=== PATIENT | female | born 1955 | race Caucasian/White ===

== ENCOUNTER → 2017-04-10 | Outpatient (CLI) | payer OTHER | LOC: FIMAGING 14:59 | PROVIDERS: ATTEND Advanced Practice Midwife | DX: Z12.31 Encounter for screening mammogram for malignant neoplasm of breast (principal) | CPT/HCPCS: G0202 ==

== ENCOUNTER 2017-08-10 07:05 | Observation (INO) | payer OTHER ==
[2017-08-10] MEDS ORDERED: ACETAMINOPHEN 500 MG TAB PO ONE (07:26)
[2017-08-10] MEDS ORDERED: GABAPENTIN 300 MG CAP PO ONE (07:26)
[2017-08-10] MEDS ORDERED: ceFAZolin 2 GM/SWFI 2 GM/20 ML SYR IVP ONE (07:26)
[2017-08-10] MEDS ORDERED: LIDOCAINE 1% 2 ML INJ ID PRN (07:31)
[2017-08-10] MEDS ORDERED: LR 1,000 ML IV ONE (07:31)
[2017-08-10] MEDS ORDERED: THROMBIN (BOVINE) 5,000 UNIT VIAL TP ONE (08:28)
[2017-08-10] MEDS ORDERED: CHLORHEXIDINE GLUC HIBICLENS 118 ML BTL TP ONE (08:28)
[2017-08-10] MEDS ORDERED: DEPO METHYLPREDNISOLONE 40 MG/ML SDV ONE (08:28)
[2017-08-10] MEDS ORDERED: BUPIVACAINE 0.25% 30 ML SDV ONE (08:28)
[2017-08-10] MEDS ORDERED: BACITRACIN 50,000 UNITS/10 ML SYR IRR ONE ×2 (08:29→11:38)
[2017-08-10] MEDS ORDERED: VANCOMYCIN HCL/NORMAL SALINE 250 ML IV ONE (08:32)
[2017-08-10] MEDS ORDERED: oxyCODONE IR 5 MG TAB PO ONE ×2 (08:33→09:00)
--- NOTE | 2017-08-10 08:33 | PDHPUP ---
History & Physical Update H&P update statement: This history and physical update is based on an assessment of the patient which was completed after admission or registration (within 24 hours), but prior to the surgery/procedure. H&P update: H&P reviewed & patient examined, no change in patient's condition since H&P completed
--- NOTE | 2017-08-10 08:40 | PDANEPAE ---
ANE History of Present Illness 61 yo female for lumber spine surgery. ANE Past Medical History - Cardiovascular History Hx Hypertension: No Hx Arrhythmias: No Hx Chest Pain: No Hx Coronary Artery / Peripheral Vascular Disease: No Hx CHF / Valvular Disease: No Hx Palpitations: No - Pulmonary History Hx COPD: No Hx Asthma/Reactive Airway Disease: Yes Hx Recent Upper Respiratory Infection: No Hx Oxygen in Use at Home: No Hx Sleep Apnea: No Sleep Apnea Screening Result - Last Documented: Negative Pulmonary History Comment: asthma - rescue inhaler this morning, no ER visits - Neurologic History Hx Cerebrovascular Accident: No Hx Seizures: No Hx Dementia: No - Endocrine History Hx Diabetes: No Hypothyroid: No Obesity: no - Renal History Hx Renal Disorders: No - Liver History Hx Hepatic Disorders: No - Neurological & Psychiatric Hx Hx Neurological and Psychiatric Disorders: Yes Neurological / Psychiatric History Comment: right ankle to foot numb r/t back - Cancer History Hx Cancer: No - Congenital Disorder History Hx Congenital Disorders: No - GI History GERD: no Hx Gastrointestinal Disorders: No - Other Health History Other Health History: none - Chronic Pain History Chronic Pain: No - Surgical History Prior Surgeries: left hand infection debridment ANE Review of Systems Review of Systems: - Exercise capacity METS (RN): 5 METS ANE Patient History - Allergies Allergies/Adverse Reactions: Penicillins Allergy (Intermediate, Verified 08/10/17 07:41) Hives Sulfa (Sulfonamide Antibiotics) Allergy (Intermediate, Verified 08/04/17 11:13) Hives sulfamethoxazole [From Bactrim] Allergy (Intermediate, Verified 08/04/17 11:13) Hives trimethoprim [From Bactrim] Allergy (Intermediate, Verified 08/10/17 07:41) Hives - Home Medications Home medications: home medication list seen and reviewed Home Medications: Budesonide/Formoterol 160/4.5 [Symbicort 160-4.5 Mcg Inh (*)] 2 puffs IH DAILY 08/04/17 [Last Taken 08/10/17 05:30] CYCLOBENZAPRINE HCL [Flexeril] 5 mg PO DAILY PRN 08/04/17 [Last Taken 08/09/17 20:00] Fluticasone Nasal [Flonase Nasal [place] (RX)] 2 sprays NASAL DAILY 08/04/17 [ Last Taken 08/10/17 05:30] Gabapentin [Neurontin 300 MG (*)] 300 mg PO HS 08/04/17 [Last Taken 07/30/17] Hydrocodone/Acetaminophen [[place] 5/325 (*)] 1 each PO DAILY PRN 08/04/17 [Last Taken 08/09/17 09:00] Progesterone, Micronized [Progesterone] 100 mg PO HS 08/04/17 [Last Taken 21:00] traMADol [Ultram 50 mg (*)] 50 mg PO BID PRN 08/04/17 [Last Taken 08/09/17 15:00 ] - NPO status NPO Since - Liquids (Date): 08/09/17 NPO Since - Liquids (Time): 00:01 NPO Since - Solids (Date): 08/09/17 NPO Since - Solids (Time): 18:00 - Anes Hx Anes Hx: no prior problems - Smoking Hx Smoking Status: Never smoked Marijuana use: No - Alcohol Use Alcohol Use: Rarely - Family Anes Hx Family Anes Hx: neg - N/A Family Hx Anesthesia Complications: none ANE Labs/Vital Signs - Vital Signs Blood Pressure: 127/77 Heart Rate: 76 Respiratory Rate: 20 O2 Sat (%): 100 Height: 175.26 cm Weight: 74.843 kg ANE Physical Exam - Airway Neck exam: FROM Mouth exam: normal dental/mouth exam - Pulmonary Pulmonary: clear to auscultation - Cardiovascular Cardiovascular: regular rate and rhythym - ASA Status ASA Status: II ANE Anesthesia Plan Anesthesia Plan: general endotracheal anesthesia Lines/Monitors: additional IV
[2017-08-10] MEDS ORDERED: MIDAZOLAM 2 MG/2 ML VIAL IVP ONE (08:48)
[2017-08-10] MEDS ORDERED: GABAPENTIN 300 MG CAP ONE (08:54)
[2017-08-10] MEDS ORDERED: ACETAMINOPHEN 500 MG TAB ONE (08:54)
[2017-08-10] MEDS ORDERED: VANCOMYCIN 1 GM in D5W 250 ML IV ONE (09:00)
[2017-08-10] MEDS ORDERED: REMIFENTANIL HCL 1 MG VIAL ONE (09:11)
[2017-08-10] MEDS ORDERED: LIDOCAINE 2% 5 ML SDV ONE (09:11)
[2017-08-10] MEDS ORDERED: DEXAMETHASONE 4 MG/ML VIAL ONE ×2 (09:11→09:18)
[2017-08-10] MEDS ORDERED: ROCURONIUM 50 MG/5 ML VIAL ONE (09:11)
[2017-08-10] MEDS ORDERED: DIAZEPAM 10 MG/2 ML SYR ONE (09:12)
[2017-08-10] MEDS ORDERED: PROPOFOL/EMULSION 500 MG/50 ML BOTTLE IV ONE ×2 (09:12)
[2017-08-10] MEDS ORDERED: HYDROmorphONE/DILAUDID 2 MG/ML INJ ONE (09:15)
[2017-08-10] MEDS ORDERED: diphenhydrAMINE 25 MG CAP PO PRN (11:11)
[2017-08-10] MEDS ORDERED: ONDANSETRON 4 MG/2 ML VIAL IVP PRN (11:11)
[2017-08-10] MEDS ORDERED: METHOCARBAMOL 750 MG TAB PO PRN (11:11)
[2017-08-10] MEDS ORDERED: POLYETHYLENE GLYCOL 3350 17 GM PKT PO PRN (11:11)
[2017-08-10] MEDS ORDERED: ONDANSETRON DISINTEGRATING 4 MG TAB PO PRN (11:11)
[2017-08-10] MEDS ORDERED: LACTULOSE 20 GM/30 ML UDCUP PO PRN (11:11)
[2017-08-10] MEDS ORDERED: MAGNESIUM HYDROXIDE 30 ML UDCUP PO PRN (11:11)
[2017-08-10] MEDS ORDERED: BISACODYL 10 MG SUPP PR PRN (11:11)
[2017-08-10] MEDS ORDERED: oxyCODONE IR 5 MG TAB PO PRN (11:11)
[2017-08-10] MEDS ORDERED: LR 500 ML IV PRN (12:03)
[2017-08-10] MEDS ORDERED: NALOXONE HCL 0.4 MG/ML INJ IVP PRN (12:03)
[2017-08-10] MEDS ORDERED: DIAZEPAM 10 MG/2 ML SYR IVP PRN (12:03)
[2017-08-10] MEDS ORDERED: PROMETHAZINE HCL 25 MG/ML INJ IVP PRN (12:03)
[2017-08-10] MEDS ORDERED: OXYCODONE/APAP 5/325 TAB PO PRN (12:03)
[2017-08-10] MEDS ORDERED: fentaNYL 100 MCG/2 ML INJ IVP PRN (12:03)
[2017-08-10] MEDS ORDERED: ALBUTEROL 3 ML DEYVIAL IH PRN (12:03)
--- NOTE | 2017-08-10 12:26 | POSTANESTH ---
Post Anesthetic Evaluation Cardiovascular Status: Normal, Stable Respiratory Status: Normal, Stable Level of Consciousness/Mental Status: Can Participate in Eval, Mildly Sleepy, Arousable Pain Control: Adequate, Prn Tx Ordered Nausea/Vomiting Control: Adequate, Prn Tx Ordered Complications Possibly Related to Anesthesia: None Noted Notes: Pt does not like FM, will switch to NC. Moving extremities x4.
--- NOTE | 2017-08-10 12:48 | POSTOPPROG ---
Post Op Note Date of Operation: 08/10/17 Surgeon: Uriel Quiles Middle Stitcher: Elizabeth Sheldon NP Anesthesia: GET(General Endotracheal) Pre-op Diagnosis: lumbar stenosis Procedure: L4-5, L5-S1 LRD Inf/Abcess present in the surg proc area at time of surgery?: No Depth: Deep Incisional (Fascial) EBL: 50-100 Total fluids administered: see anesthesia Complications: none Date of Surgery: 08/10/17 Post Op Day: 0 Assessment/Plan: 61 yr old s/p L4-5, L5-S1 LRD for right leg pain Plan: -Patient will be admitted for obs -If doing well later this afternoon, patient may dc home. RN to call me for orders. -Pain management, use oral medications only if possible -Call neurosurgery with any questions/concerns Subjective: waking up in pacu, right leg feels better Objective: Awake and alert 5/5 BLE Sensation intact to light touch BLE Dressing CDI Appropriate Neuro Check Frequency Ordered: Yes
[2017-08-10] MEDS ORDERED: fentaNYL 100 MCG/2 ML INJ ONE (12:56)
--- NOTE | 2017-08-10 13:54 | GOP ---
[f rep st] OPERATIVE REPORT DATE OF OPERATION: 08/10/2017 SURGEON: Paula Quiles MD INTELLIGENCE INTERN: Elizabeth Sheldon, nurse practitioner PREOPERATIVE DIAGNOSIS: Lumbar spondylosis, lumbar spondylolisthesis, L4-5. Right lumbosacral radic ulopathy. Severe right lateral recess stenosis, L4-5. Right L5-S1 synovial cyst. POSTOPERATIVE DIAGNOSIS: Lumbar spondylosis, lumbar spondylolisthesis, L4-5. Right lumbosacral radi culopathy. Severe right lateral recess stenosis, L4-5. Right L5-S1 synovial cyst. PROCEDURE PERFORMED: Right L5-S1 hemilaminotomy and laminectomy for resection of a synovial cyst on the right S1 nerve root, right L4-5 hemilaminotomy, medial facetectomy and a right lateral recess dec ompression for the right L5 nerve root, microscope. FINDINGS: ESTIMATED BLOOD LOSS: 50 cc. 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 She did have trace left-sided pain. Her MRI demonstrated spo ndylolisthesis at L4-5, but no significant instability at that level. She had bilateral recess steno sis at L4-5, but she also had a large right L5-S1 synovial cyst. Her dominant complaint was right-si ded pain. I expressed my opinion to her, that I did not want to do both sides at L4-5 as she already had a spondylolisthesis and I did not want to further destabilize the spine there, and I felt that a better choice for that, if left-sided symptoms persist, would be to consider a fusion. She knew the re was a chance the left-sided symptoms would persist as we were not going to do the left side, and t hat our goal was right-sided decompression. She knew there was risk of nerve injury, spinal fluid le ak, and future surgery. Given the right-sided synovial cyst at L5-S1, she knew that a fusion may be required at this level as well. I preferred to do a decompression alone. The risk of continued symp toms, however, was discussed. She did want to proceed. DESCRIPTION OF PROCEDURE: The patient was taken to the operating room, placed in supine position. G eneral anesthesia was begun. She was flipped prone onto the Jaya frame. Care was taken to pad all points of contact. Her back was sterilely prepped and draped in usual fashion. A localizing x-ray was taken. A midline incision was made. We made a right subperiosteal dissection down to the L4, L5 , S1 laminae; self-retaining traction was placed; localizing x-rays taken. Operating microscope was introduced. We drilled a right L4-5, L5-S1 hemilaminotomy. We opened the ligamentum flavum initially at L5-S1 an d all we encountered was a large mass in the spinal canal. It was difficult to ascertain where, in f act, the dura began and where the mass ended. I turned my attention to the L4-5 level, where we open ed the ligamentum flavum and decompressed the right lateral recess. There was actually very severe l ateral recess stenosis for the traversing L5 root at that level. We got a great lateral recess decom pression. We delineated the L5 root, decompressed it flush with the L5 pedicle, then worked our way down along the lateral border of the thecal sac until we encountered L5-S1 synovial cyst. This took considerabl e time to dissect around. At the rostral aspect of the cyst, it was firmly adherent to the dura. We began developing a plane medially and a plane laterally, and we worked our way down adjacent to the S1 pedicle, and decompressed the traversing S1 root. Here, we could identify the lateral border of t he cyst. We were able to peel this up off the right S1 root and also off the thecal sac at the level of the S1 pedicle. Rostrally, we worked our way down the midline, the cyst from the dura until we were able to join the dissection inferiorly down near the S1 segment. We had gone now comp letely around the cyst. It was free from the S1 root. There was a large proteinaceous component ins angy the cyst, and this was simply sucked up the sucker. The remaining portions of the cyst we resect ed piecemeal until we got to that rostral edge, where I initially detected the adherence to the theca l sac itself, and this was very firmly adherent and we began to dissect it and then I, at this point, elected not to remove the last little piece of the cyst wall. It was firmly stuck to the dura and a durotomy, in my view, would ensue. We had a completely decompressed S1 root. We had resected all the cyst contents, and left only this tiny wall of the cyst stuck to the shoulder of the S1 root itself. We irrigated with antibiotic sali ne solution, placed a little Marcaine with epinephrine as well as some steroid onto a piece of Gelfoa m and placed this down over the laminotomy defects. There was very little bleeding during the case. We then closed the incision in multiple layers using Vicryl sutures. A running PDS was placed in th e skin itself. Steri-Strips were applied. The patient was reversed from anesthesia, extubated, and transferred to recovery room in stable condition. There were no complications. COMPLICATIONS: None. /[id number]/MODL
[2017-08-10] MEDS ORDERED: IBUPROFEN 200 MG TAB PO PRN (15:15)
[2017-08-10] MEDS ORDERED: SENNOSIDES/DOCUSATE SODIUM TAB PO SCH (15:15)
[2017-08-10] MEDS ORDERED: ACETAMINOPHEN 325 MG TAB PO PRN (15:15)
[2017-08-10 15:55] VITALS: BP 135/90; PULSE 81; RESP 14; TEMP 98.3; O2SAT 99
[2017-08-10] MEDS ORDERED: PROGESTERONE,MICR 100 MG CAP PO SCH (21:00)
[2017-08-10] MEDS ORDERED: FAMOTIDINE 20 MG TAB PO SCH (21:00)
[2017-08-11] MEDS ORDERED: BUDESONIDE/FORMOTEROL 160/4.5 60 PUFFS/MDI IH SCH (09:00)
[2017-08-13] MEDS ORDERED: ENOXAPARIN 40 MG/0.4 ML SYR SC SCH (09:00)
== END 2017-08-10 17:06 | disposition home or self-care (01) ==
LOC: F3N 07:05
PROVIDERS: ADMIT Neurological Surgery; ATTEND Neurological Surgery
PROC: 00NY0ZZ Release Lumbar Spinal Cord, Open Approach (ICD-10-PCS; principal; 2017-08-10 09:30)
PROC: 00B20ZZ Excision of Dura Mater, Open Approach (ICD-10-PCS; principal; 2017-08-10 09:30)
PROC: 01NR0ZZ Release Sacral Nerve, Open Approach (ICD-10-PCS; principal; 2017-08-10 09:30)
PROC: 01NB0ZZ Release Lumbar Nerve, Open Approach (ICD-10-PCS; principal; 2017-08-10 09:30)
DX: M47.896 Other spondylosis, lumbar region (principal); M43.16 Spondylolisthesis, lumbar region; M54.17 Radiculopathy, lumbosacral region; M48.061 Spinal stenosis, lumbar region without neurogenic claudication; M71.38 Other bursal cyst, other site; J45.909 Unspecified asthma, uncomplicated
CPT/HCPCS: 63047; 63048; 76001; G0378; J0171; J1030; J1100; J1170; J2250; J2704; J3010; J3370

== ENCOUNTER → 2018-03-05 | Outpatient (CLI) | payer OTHER | LOC: FIMAGING 12:03 | DX: N63.11 Unspecified lump in the right breast, upper outer quadrant (principal); N63.10 Unspecified lump in the right breast, unspecified quadrant ==

== ENCOUNTER → 2018-03-12 | Outpatient (CLI) | payer OTHER | LOC: FIMAGING 11:12 | DX: Z13.820 Encounter for screening for osteoporosis (principal); M85.89 Other specified disorders of bone density and structure, multiple sites; Z78.0 Asymptomatic menopausal state ==

== ENCOUNTER → 2018-03-24 | Outpatient (CLI) | payer OTHER ==
[~2018-03-24] MED LIST: BUPIVACAINE 0.5% 30 ML SDV ONE; LIDOCAINE 1% 300 MG/30 ML SDV ONE; THROMBIN (BOVINE) 5,000 UNIT VIAL TP ONE
== END ==
LOC: FIMAGING 07:18
PROC: 0HBU3ZX Excision of Left Breast, Percutaneous Approach, Diagnostic (ICD-10-PCS; principal; 2018-03-24)
DX: N60.12 Diffuse cystic mastopathy of left breast (principal)

== ENCOUNTER → 2018-10-14 | Outpatient (CLI) | payer OTHER | LOC: FIMAGING 13:33 | DX: N63.21 Unspecified lump in the left breast, upper outer quadrant (principal) ==